=== PATIENT | male | born 1950 | race Caucasian/White ===

== ENCOUNTER 2017-11-30 06:11 | Day surgery (SDC) | payer MEDICARE ==
[~2017-11-30] VITALS: Ht 185.4 cm; Wt 102.3 kg
[2017-11-30] VITALS (9 sets, daily range): BP systolic 135–172; BP diastolic 81–101; PULSE 57–64; RESP 18–20; TEMP 97.9–98.3; O2SAT 92–97
[2017-11-30] MEDS ORDERED: PROP10TA6 PO (06:53)
[2017-11-30] MEDS ORDERED: ALBU6.7H INH (06:53)
[2017-11-30] MEDS ORDERED: VALS1TAB64 PO (06:53)
[2017-11-30] MEDS ORDERED: ALPH0.1S EACH EYE (06:53)
[2017-11-30] MEDS ORDERED: SODIUM CHLOR 0.9% 1000 ML INJ 1,000 ML IV SCH (07:00)
[2017-11-30] MEDS ORDERED: ASPI-516 CHEW (07:26)
[2017-11-30] MEDS ORDERED: LIDOCAINE HCL 1% 20 ML VIAL ONE (07:48)
[2017-11-30] MEDS ORDERED: MIDAZOLAM HCL 2 MG/2 ML VIAL ONE (08:13)
--- NOTE | 2017-11-30 08:59 | PD.RAD ---
Post CT Procedure Prog Note Pre Procedure Diagnosis: (1) Left renal mass Post Procedure Diagnosis: (1) Left renal mass Procedure Date: Nov 30, 2017 Supervising Radiologist: Sy Rose Anesthesia: Conscious Sedation Plan of Activity Patient to Unit: ROPU Patient Condition: Good See PACS Report for procedural detail/treatment Biopsy Imaging Guidance: CT Side: Left Biopsy Procedure: Kidney Site: left upper pole renal mass Specimen: Core Biopsy Additional Detail: 5 20G cores obtained. Plan to [facility] for monitoring then discharge in 4 hours. Sy Rose MD Nov 30, 2017 08:59
--- NOTE | 2017-11-30 09:35 | RADRPT ---
EXAM DATE/TIME: 11/30/2017 08:17 [place] COMPARISON: No previous studies available for comparison. INDICATIONS : Left renal mass SEDATION TIME: 15 minutes BIOPSY SITE: Left kidney MEDICATION(S): 1.) 3 mg midazolam (Versed) IV 2.) 150 mcg fentanyl (Sublimaze) IV DEVICE(S): 1.) 18 gauge Bennett blunt needle 2.) 20 gauge Temno core biopsy needle MEDICAL HISTORY : None. SURGICAL HISTORY : None. ENCOUNTER: Initial ACUITY: 1 day PAIN SCORE: 0/10 LOCATION: Left flank A total of five core specimen(s) were obtained and sent to the laboratory for pathologic evaluation. PROCEDURE: 1. CT guided renal biopsy. Prior to the procedure informed consent was obtained. The patient's outside CT examination from [facility] was reviewed. Using automated exposure control and adjustment of the mA and/or kV according to patient size, radiat ion dose was kept as low as reasonably achievable to obtain optimal diagnostic quality images. DICOM format image data is available electronically for review and comparison. The site was prepped in a sterile fashion. Full sterile technique was used, including cap, mask, chana rile gloves and gown and a large sterile sheet. Hand hygiene and 2% chlorhexidine and/or betadine/al cohol prep was utilized per protocol for cutaneous antisepsis. The skin and subcutaneous tissues wer e infiltrated with local anesthetic solution. With CT guidance the previously identified target was localized. Biopsy was performed using the presc ribed needle as above. Adequate hemostasis was obtained with compression at the puncture site. Follow-up CT scan reveals minimal perinephric hemorrhage. The patient tolerated the procedure well and there were no complications. The patient was returned to the Radiology Outpatient Unit in stable condition. CONCLUSION: Uncomplicated CT guided biopsy of the left upper pole renal mass. Sy Rose MD on November 30, 2017 at 9:28 Board Certified Radiologist. This report was verified electronically.
== END 2017-11-30 13:08 | disposition home or self-care (01) ==
LOC: HRAD 06:11 → HRIP 06:37 → HRAD 13:08
PROVIDERS: ATTEND Urology
DX: D41.02 Neoplasm of uncertain behavior of left kidney (principal); I10 Essential (primary) hypertension; J44.9 Chronic obstructive pulmonary disease, unspecified
CPT/HCPCS: 50200; 77012; 88305; 88341; 88342; J2250; J3010; J7030; 88307